=== PATIENT | female | born 1965 | race Caucasian/White ===

== ENCOUNTER 2016-12-14 16:06 | Emergency (ER) | payer OTHER ==
[~2016-12-14] VITALS: Ht 175.3 cm; Wt 76.8 kg
[~2016-12-14 16:06] MED LIST: AMLODIPINE BESYL5 MG PO; CEFEPIME HCL2 GM IM; CIPRO500 MG PO; DILAUDID4 MG PO; Glucotrol PO; JANUMET 50/11 TABLET PO; JANUMET XR 50-1 EAC1 PO; JANUVIA25 M1 PO; LANTUS 10100 UNITS/ SC; LEVEMIR100 UNIT/2 SC; Lantus 3 ml Solostar SC; NORMODYNE,TRAN200 MG PO; VANCOMYCIN1.25 GM/25 IV; WYGESIC,DARV1 TABLET PO; ZOFRAN ODT4 MG PO; Zestril,Prinivil PO
[2016-12-14 16:44] LABS: POINT-OF-CARE METER ID UU13113778
[2016-12-14 16:49] LABS: MCH 26.4 PG (29.0-34.0); MCHC 32.6 G/DL (30.0-36.0); MEAN PLAT.VOLUME 10.2 uM^3 (9.5-12.4); PLATELET COUNT 289 K/uL (156-360); RBC DIS.WIDTH-CV 14.5 % (11.8-14.6); RBC DIS.WIDTH-SD 41.8 % (39-53); RED BLOOD COUNT 4.69 M/uL (3.80-5.20); WHITE BLOOD COUNT 6.5 K/uL (4.1-10.2)
[2016-12-14 17:01] LABS: CHLORIDE 103 mEq/L (99-109); POTASSIUM 4.2 mEq/L (3.7-5.4); SODIUM 138 mEq/L (136-147)
[2016-12-14 17:03] LABS: GLUCOSE 225 mg/dL (70-99)
[2016-12-14 17:05] LABS: ANION GAP 12 MEQ/L (2-14); TOTAL BILIRUBIN 0.7 mg/dL (0.0-1.0)
[2016-12-14 17:07] LABS: ALKALINE PHOSPHATASE 83 IU/L (3-129); GFR ESTIMATE (CALCULATED) 42 mL/min/
[2016-12-14 17:08] LABS: UREA NITROGEN (BUN) 27 mg/dL (9-23)
[2016-12-14 17:16] LABS: QUANTITATIVE HCG < 4.0 MIU/ML
[2016-12-14] MEDS ORDERED: LANTUS 10100 UNITS/ SC (17:48)
[2016-12-14 19:31] LABS: ADD MIUA? YES; BILIRUBIN NEGATIVE; BLOOD MODERATE; COLOR YELLOW ((YELLOW)); GLUCOSE (STRIP) NEGATIVE; KETONES 20; LEUKOCYTES MODERATE; NITRITE NEGATIVE; PROTEIN (STRIP) 100; SPECIFIC GRAVITY 1.021 (1.000-1.030); UROBILINOGEN 0.2 MG/DL (0.2-1.0)
[2016-12-14 19:39] LABS: MUCUS NONE SEEN /LPF; RED BLOOD CELLS 0-5 /HPF (0-5); WHITE BLOOD CELLS TNTC /HPF (0-5)
[2016-12-14 19:40] LABS: BACTERIA 4+ /HPF; CASTS NONE SEEN /LPF; CRYSTALS NONE SEEN; EPITHELIAL CELLS 1+ /HPF; UCUL ADDED? YES
[2016-12-14] MEDS ORDERED: KEFLEX500 MG PO (21:36)
[2016-12-14 22:04] VITALS: BP 148/97
== END 2016-12-14 22:05 | disposition home or self-care (01) ==
LOC: EME 16:06
DX: N13.6 Pyonephrosis (principal); R10.9 Unspecified abdominal pain; R11.2 Nausea with vomiting, unspecified; R19.7 Diarrhea, unspecified; R51 Headache; E11.9 Type 2 diabetes mellitus without complications; Z79.4 Long term (current) use of insulin
CPT/HCPCS: 74176; 80053; 81003; 82948; 84702; 85027; 87077; 87086; 87186; 99281; 99285; J0696; J1885; J2270; J2405; J7050

== ENCOUNTER 2016-12-16 19:02 | Inpatient (IN) | payer OTHER ==
[~2016-12-16] VITALS: Ht 175.3 cm; Wt 78.9 kg
[~2016-12-16 19:02] MED LIST changes: +KEFLEX500 MG PO
[2016-12-16 20:30] LABS: EOSINOPHIL (%) 1.6 % (0-5); EOSINOPHIL COUNT 0.1 K/uL (0-0.3); HEMATOCRIT 35.9 % (36.0-46.0); IMMATURE GRANULOCYTE (%) 0.3 % (0.0-0.7); IMMATURE GRANULOCYTE COUNT 0.1 K/uL; LYMPHOCYTE COUNT 1.2 K/uL (1.0-2.8); MCH 26.1 PG (29.0-34.0); MCHC 31.5 G/DL (30.0-36.0); MCV 82.9 FL (83-99); MEAN PLAT.VOLUME 9.8 uM^3 (9.5-12.4); MONOCYTE (%) 17.1 % (3-12); MONOCYTE COUNT 0.7 K/uL (0-0.8); NEUTROPHIL (%) 50.4 % (45-76); PLATELET COUNT 328 K/uL (156-360); RBC DIS.WIDTH-CV 14.1 % (11.8-14.6); RBC DIS.WIDTH-SD 41.9 % (39-53); RED BLOOD COUNT 4.33 M/uL (3.80-5.20)
[2016-12-16] MEDS ORDERED: KEFLEX500 MG PO (20:31)
[2016-12-16 20:34] LABS: WHITE BLOOD COUNT 3.9 K/uL (4.1-10.2)
[2016-12-16 20:40] LABS: CHLORIDE 105 mEq/L (99-109); POTASSIUM 4.9 mEq/L (3.7-5.4); SODIUM 140 mEq/L (136-147)
[2016-12-16 20:43] LABS: ANION GAP 10 MEQ/L (2-14)
[2016-12-16 20:44] LABS: GLUCOSE 118 mg/dL (70-99)
[2016-12-16 20:45] LABS: GFR ESTIMATE (CALCULATED) 50 mL/min/
[2016-12-16 20:46] LABS: UREA NITROGEN (BUN) 24 mg/dL (9-23)
[2016-12-16 22:49] VITALS: BP 161/98
[2016-12-17 03:52] LABS: POINT-OF-CARE METER ID UU14162508
[2016-12-17 04:00] VITALS: BP 156/89
[2016-12-17 07:08] LABS: HEMATOCRIT 32.2 % (36.0-46.0); MCH 26.8 PG (29.0-34.0); MCV 83.9 FL (83-99); MEAN PLAT.VOLUME 9.9 uM^3 (9.5-12.4); PLATELET COUNT 257 K/uL (156-360); RBC DIS.WIDTH-CV 14.3 % (11.8-14.6); RBC DIS.WIDTH-SD 43.8 % (39-53); RED BLOOD COUNT 3.84 M/uL (3.80-5.20); WHITE BLOOD COUNT 3.2 K/uL (4.1-10.2)
[2016-12-17 07:32] LABS: ANION GAP 9 MEQ/L (2-14); CHLORIDE 105 MEQ/L (99-109); GFR ESTIMATE (CALCULATED) > 59 mL/min/; SAMPLE HEMOLYSIS CHECK 0; SAMPLE ICTERIC CHECK 0; SAMPLE LIPEMIA CHECK 0; SODIUM 138 MEQ/L (136-147); UREA NITROGEN (BUN) 17 mg/dL (9-23)
[2016-12-17 07:33] LABS: IRON 22 MCG/DL (35-150)
[2016-12-17 07:36] LABS: EOSINOPHIL (%) 1.9 % (0-5); EOSINOPHIL COUNT 0.1 K/uL (0-0.3); IMMATURE GRANULOCYTE (%) 0.6 % (0.0-0.7); MONOCYTE (%) 16.4 % (3-12); MONOCYTE COUNT 0.5 K/uL (0-0.8); NEUTROPHIL (%) 48.9 % (45-76); NEUTROPHIL COUNT 1.6 K/uL (1.8-6.4)
[2016-12-17 07:39] LABS: GLUCOSE 88 mg/dL (70-99)
[2016-12-17 08:08] VITALS: BP 162/98
[2016-12-17 08:11] LABS: FERRITIN 161 NG/ML (10-291)
[2016-12-17 11:35] LABS: POINT-OF-CARE METER ID UU14162508
[2016-12-17 12:08] VITALS: BP 164/100
[2016-12-17 16:07] LABS: POINT-OF-CARE METER ID UU14162508
[2016-12-17 16:11] VITALS: BP 166/100
[2016-12-17 21:40] LABS: POINT-OF-CARE METER ID UU14162508
[2016-12-18 00:12] VITALS: BP 131/72
[2016-12-18 03:20] LABS: POINT-OF-CARE METER ID UU14162508
[2016-12-18 07:48] LABS: HEMATOCRIT 33.7 % (36.0-46.0); MCH 25.3 PG (29.0-34.0); MCHC 30.6 G/DL (30.0-36.0); MCV 82.8 FL (83-99); RBC DIS.WIDTH-CV 14.1 % (11.8-14.6); RBC DIS.WIDTH-SD 42.7 % (39-53); RED BLOOD COUNT 4.07 M/uL (3.80-5.20)
[2016-12-18 07:51] LABS: WHITE BLOOD COUNT 5.4 K/uL (4.1-10.2)
[2016-12-18 07:57] LABS: ANION GAP 12 MEQ/L (2-14); CHLORIDE 103 MEQ/L (99-109); GFR ESTIMATE (CALCULATED) > 59 mL/min/; GLUCOSE 149 mg/dL (70-99); MAGNESIUM 1.4 mg/dl (1.3-2.7); POTASSIUM 4.1 MEQ/L (3.7-5.4); SAMPLE HEMOLYSIS CHECK 0; SAMPLE ICTERIC CHECK 0; SAMPLE LIPEMIA CHECK 0; SODIUM 139 MEQ/L (136-147); UREA NITROGEN (BUN) 15 mg/dL (9-23)
[2016-12-18 08:12] VITALS: BP 157/92
[2016-12-18 08:32] LABS: MEAN PLAT.VOLUME 9.7 uM^3 (9.5-12.4); PLATELET COUNT 279 K/uL (156-360)
[2016-12-18 11:22] VITALS: BP 175/91
[2016-12-18 11:37] LABS: POINT-OF-CARE METER ID UU14162508
[2016-12-18 15:36] VITALS: BP 158/84
[2016-12-18 21:18] VITALS: BP 163/89
[2016-12-18 23:41] VITALS: BP 140/85
[2016-12-19 03:56] VITALS: BP 155/85
[2016-12-19 07:05] VITALS: BP 150/87
[2016-12-19 07:29] LABS: ANION GAP 12 MEQ/L (2-14); CHLORIDE 101 MEQ/L (99-109); EOSINOPHIL (%) 0.4 % (0-5); GFR ESTIMATE (CALCULATED) 55 mL/min/; HEMATOCRIT 32.6 % (36.0-46.0); IMMATURE GRANULOCYTE COUNT 0.2 K/uL; MCH 27.2 PG (29.0-34.0); MCHC 33.1 G/DL (30.0-36.0); MCV 82.1 FL (83-99); MEAN PLAT.VOLUME 9.6 uM^3 (9.5-12.4); MONOCYTE (%) 14.5 % (3-12); MONOCYTE COUNT 1.1 K/uL (0-0.8); NEUTROPHIL (%) 70.2 % (45-76); NEUTROPHIL COUNT 5.4 K/uL (1.8-6.4); PLATELET COUNT 327 K/uL (156-360); RBC DIS.WIDTH-CV 14.2 % (11.8-14.6); RBC DIS.WIDTH-SD 42.6 % (39-53); RED BLOOD COUNT 3.97 M/uL (3.80-5.20); SAMPLE HEMOLYSIS CHECK 0; SAMPLE ICTERIC CHECK 0; SAMPLE LIPEMIA CHECK 0; SODIUM 137 MEQ/L (136-147); UREA NITROGEN (BUN) 13 mg/dL (9-23)
[2016-12-19 07:32] LABS: GLUCOSE 108 mg/dL (70-99)
[2016-12-19 07:34] LABS: WHITE BLOOD COUNT 7.7 K/uL (4.1-10.2)
[2016-12-19 12:08] VITALS: BP 134/76
[2016-12-19 16:03] VITALS: BP 156/80
[2016-12-19 17:08] LABS: POINT-OF-CARE METER ID UU14162508
[2016-12-19 23:48] VITALS: BP 156/84
[2016-12-20 08:12] VITALS: BP 154/80
[2016-12-20 11:30] VITALS: BP 147/80
[2016-12-20 12:29] LABS: EOSINOPHIL (%) 0.2 % (0-5); HEMATOCRIT 35.4 % (36.0-46.0); IMMATURE GRANULOCYTE (%) 1.7 % (0.0-0.7); IMMATURE GRANULOCYTE COUNT 0.2 K/uL; MCH 26.3 PG (29.0-34.0); MCHC 31.6 G/DL (30.0-36.0); MCV 83.1 FL (83-99); MEAN PLAT.VOLUME 9.5 uM^3 (9.5-12.4); MONOCYTE (%) 8.1 % (3-12); MONOCYTE COUNT 0.9 K/uL (0-0.8); NEUTROPHIL (%) 81.1 % (45-76); PLATELET COUNT 385 K/uL (156-360); RBC DIS.WIDTH-SD 42.4 % (39-53); RED BLOOD COUNT 4.26 M/uL (3.80-5.20)
[2016-12-20 12:32] LABS: WHITE BLOOD COUNT 11.1 K/uL (4.1-10.2)
[2016-12-20 12:51] LABS: ANION GAP 10 MEQ/L (2-14); CHLORIDE 99 MEQ/L (99-109); GFR ESTIMATE (CALCULATED) 50 mL/min/; GLUCOSE 134 mg/dL (70-99); POTASSIUM 3.7 MEQ/L (3.7-5.4); SAMPLE HEMOLYSIS CHECK 0; SAMPLE ICTERIC CHECK 0; SAMPLE LIPEMIA CHECK 0; SODIUM 137 MEQ/L (136-147); UREA NITROGEN (BUN) 10 mg/dL (9-23)
[2016-12-20 15:23] VITALS: BP 143/81
[2016-12-20 19:01] LABS: ADD MIUA? YES; BILIRUBIN NEGATIVE; BLOOD MODERATE; COLOR YELLOW ((YELLOW)); GLUCOSE (STRIP) NEGATIVE; KETONES NEGATIVE; LEUKOCYTES SMALL; NITRITE NEGATIVE; PROTEIN (STRIP) 100; SPECIFIC GRAVITY 1.013 (1.000-1.030); UROBILINOGEN 0.2 MG/DL (0.2-1.0)
[2016-12-20 19:29] LABS: BACTERIA RARE /HPF; EPITHELIAL CELLS 3+ /HPF; MUCUS TRACE /LPF; WHITE BLOOD CELLS 20-30 /HPF (0-5)
[2016-12-20 23:19] VITALS: BP 140/74
[2016-12-21 06:57] LABS: EOSINOPHIL (%) 0.3 % (0-5); HEMATOCRIT 34.2 % (36.0-46.0); MCHC 31.3 G/DL (30.0-36.0); MCV 83.2 FL (83-99); MEAN PLAT.VOLUME 9.7 uM^3 (9.5-12.4); MONOCYTE (%) 8.1 % (3-12); NEUTROPHIL (%) 82.4 % (45-76); PLATELET COUNT 363 K/uL (156-360); RBC DIS.WIDTH-CV 14.1 % (11.8-14.6); RBC DIS.WIDTH-SD 42.6 % (39-53); RED BLOOD COUNT 4.11 M/uL (3.80-5.20); WHITE BLOOD COUNT 12.6 K/uL (4.1-10.2)
[2016-12-21 06:58] LABS: IMMATURE GRANULOCYTE (%) 1.1 % (0.0-0.7); IMMATURE GRANULOCYTE COUNT 0.1 K/uL; INSTRUMENT ABS NEUTROPHIL CT 10.4 K/uL; NEUTROPHIL COUNT 10.4 K/uL (1.8-6.4)
[2016-12-21 08:00] VITALS: BP 152/91
[2016-12-21 12:00] LABS: POINT-OF-CARE METER ID UU14162508
[2016-12-21 15:47] VITALS: BP 130/73
[2016-12-21 17:23] LABS: POINT-OF-CARE METER ID UU14162508
[2016-12-21 22:15] LABS: POINT-OF-CARE METER ID UU14162508
[2016-12-21 23:37] VITALS: BP 124/67
[2016-12-22 06:35] LABS: POINT-OF-CARE METER ID UU14162508
[2016-12-22 07:55] LABS: POINT-OF-CARE METER ID UU14162508
[2016-12-22 08:54] VITALS: BP 137/80
[2016-12-22 10:46] LABS: HEMATOCRIT 31.4 % (36.0-46.0); MCH 25.9 PG (29.0-34.0); MCHC 31.2 G/DL (30.0-36.0); MCV 83.1 FL (83-99); MEAN PLAT.VOLUME 9.5 uM^3 (9.5-12.4); PLATELET COUNT 404 K/uL (156-360); RBC DIS.WIDTH-CV 14.2 % (11.8-14.6); RED BLOOD COUNT 3.78 M/uL (3.80-5.20); WHITE BLOOD COUNT 16.3 K/uL (4.1-10.2)
[2016-12-22 11:00] VITALS: BP 134/73
[2016-12-22 11:02] LABS: ANION GAP 12 MEQ/L (2-14); CHLORIDE 97 MEQ/L (99-109); MAGNESIUM 1.4 mg/dl (1.3-2.7); SAMPLE HEMOLYSIS CHECK 0; SAMPLE ICTERIC CHECK 0; SAMPLE LIPEMIA CHECK 0; SODIUM 136 MEQ/L (136-147)
[2016-12-22 11:09] LABS: GFR ESTIMATE (CALCULATED) 50 mL/min/; UREA NITROGEN (BUN) 14 mg/dL (9-23)
[2016-12-22 11:10] LABS: GLUCOSE 86 mg/dL (70-99)
[2016-12-22 14:56] LABS: IMM.RETIC FRACTION 9.1 % (3-19); RETIC HGB EQUIVALENT 23.1 (28-36)
[2016-12-22 15:41] LABS: IRON 12 MCG/DL (35-150)
[2016-12-22 16:20] LABS: FERRITIN 305 NG/ML (10-291)
[2016-12-22 16:23] LABS: POINT-OF-CARE METER ID UU14162508
[2016-12-22 16:33] VITALS: BP 133/77
[2016-12-22] MEDS ORDERED: INVANZ1 GM IV (18:18)
[2016-12-22] MEDS ORDERED: FAMOTIDINE20 MG PO (18:19)
[2016-12-22] MEDS ORDERED: METFORMIN HCL1000 MG PO (18:19)
[2016-12-22] MEDS ORDERED: AMLODIPINE BESYL5 MG PO (18:19)
[2016-12-22] MEDS ORDERED: METOCLOPRAM5 MG/1 M1 IV (18:19)
[2016-12-22] MEDS ORDERED: HEPARIN SO5000 UNITS SC (18:19)
[2016-12-22 22:15] LABS: POINT-OF-CARE METER ID UU14162508
[2016-12-22 23:50] VITALS: BP 158/87
[2016-12-23 07:38] LABS: HEMATOCRIT 31.7 % (36.0-46.0); MCH 25.9 PG (29.0-34.0); MCHC 31.2 G/DL (30.0-36.0); MEAN PLAT.VOLUME 9.2 uM^3 (9.5-12.4); PLATELET COUNT 385 K/uL (156-360); RBC DIS.WIDTH-CV 14.6 % (11.8-14.6); RBC DIS.WIDTH-SD 43.9 % (39-53); RED BLOOD COUNT 3.82 M/uL (3.80-5.20); WHITE BLOOD COUNT 13.6 K/uL (4.1-10.2)
[2016-12-23 07:50] VITALS: BP 137/77
[2016-12-23 12:36] VITALS: BP 128/68
[2016-12-23 16:10] VITALS: BP 144/79
[2016-12-23 16:42] LABS: POINT-OF-CARE METER ID UU14162508
[2016-12-23 19:57] VITALS: BP 152/81
[2016-12-23 23:23] VITALS: BP 113/69
[2016-12-24 03:45] LABS: POINT-OF-CARE METER ID UU14162508
[2016-12-24 08:00] VITALS: BP 117/56
[2016-12-24 12:26] LABS: POINT-OF-CARE METER ID UU14162508
[2016-12-24 14:23] LABS: HEMATOCRIT 30.6 % (36.0-46.0); MCH 25.4 PG (29.0-34.0); MCHC 30.4 G/DL (30.0-36.0); MCV 83.6 FL (83-99); MEAN PLAT.VOLUME 9.4 uM^3 (9.5-12.4); PLATELET COUNT 447 K/uL (156-360); RBC DIS.WIDTH-CV 14.6 % (11.8-14.6); RBC DIS.WIDTH-SD 44.6 % (39-53); RED BLOOD COUNT 3.66 M/uL (3.80-5.20); WHITE BLOOD COUNT 14.8 K/uL (4.1-10.2)
[2016-12-24 14:51] LABS: ALKALINE PHOSPHATASE 104 IU/L (3-129); ANION GAP 11 MEQ/L (2-14); CHLORIDE 101 MEQ/L (99-109); GFR ESTIMATE (CALCULATED) > 59 mL/min/; MAGNESIUM 1.5 mg/dl (1.3-2.7); POTASSIUM 3.9 MEQ/L (3.7-5.4); SAMPLE HEMOLYSIS CHECK 0; SAMPLE ICTERIC CHECK 0; SAMPLE LIPEMIA CHECK 0; SODIUM 137 MEQ/L (136-147); TOTAL BILIRUBIN 0.3 MG/DL (0.0-1.0); UREA NITROGEN (BUN) 17 mg/dL (9-23)
[2016-12-24 14:58] LABS: GLUCOSE 112 mg/dL (70-99)
[2016-12-24 16:00] VITALS: BP 119/71
[2016-12-24 16:39] LABS: POINT-OF-CARE METER ID UU14162508
[2016-12-24 23:40] VITALS: BP 114/58
[2016-12-25 05:22] LABS: EOSINOPHIL (%) 0.2 % (0-5); HEMATOCRIT 29.7 % (36.0-46.0); IMMATURE GRANULOCYTE (%) 0.7 % (0.0-0.7); IMMATURE GRANULOCYTE COUNT 0.1 K/uL; INSTRUMENT ABS NEUTROPHIL CT 10.5 K/uL; LYMPHOCYTE COUNT 0.9 K/uL (1.0-2.8); MCH 25.8 PG (29.0-34.0); MCV 83.4 FL (83-99); MEAN PLAT.VOLUME 9.6 uM^3 (9.5-12.4); MONOCYTE (%) 9.4 % (3-12); MONOCYTE COUNT 1.2 K/uL (0-0.8); NEUTROPHIL (%) 82.3 % (45-76); NEUTROPHIL COUNT 10.5 K/uL (1.8-6.4); PLATELET COUNT 475 K/uL (156-360); RBC DIS.WIDTH-CV 14.6 % (11.8-14.6); RBC DIS.WIDTH-SD 44.9 % (39-53); RED BLOOD COUNT 3.56 M/uL (3.80-5.20); WHITE BLOOD COUNT 12.8 K/uL (4.1-10.2)
[2016-12-25 05:47] LABS: ANION GAP 12 MEQ/L (2-14); CHLORIDE 99 MEQ/L (99-109); GFR ESTIMATE (CALCULATED) 50 mL/min/; GLUCOSE 94 mg/dL (70-99); POTASSIUM 3.6 MEQ/L (3.7-5.4); SAMPLE HEMOLYSIS CHECK 0; SAMPLE ICTERIC CHECK 0; SAMPLE LIPEMIA CHECK 0; SODIUM 136 MEQ/L (136-147); UREA NITROGEN (BUN) 17 mg/dL (9-23)
[2016-12-25 08:25] VITALS: BP 120/73
[2016-12-25] MEDS ORDERED: JANUVIA25 M1 PO (11:09)
[2016-12-25] MEDS ORDERED: AMLODIPINE BESYL5 MG PO (11:34)
== END 2016-12-25 11:54 | disposition home or self-care (01) | DRG 690 ==
LOC: EME 19:02 → EDOF 21:04 → 2EAST 21:04
PROVIDERS: Emergency Medicine; Hospitalist; Internal Medicine; Internal Medicine Infectious Disease
DX: N13.6 Pyonephrosis (principal); N17.9 Acute kidney failure, unspecified; B96.20 Unspecified Escherichia coli [E. coli] as the cause of diseases classified elsewhere; E11.621 Type 2 diabetes mellitus with foot ulcer; L97.419 Non-pressure chronic ulcer of right heel and midfoot with unspecified severity; E87.6 Hypokalemia; R50.2 Drug induced fever; E03.9 Hypothyroidism, unspecified; E11.22 Type 2 diabetes mellitus with diabetic chronic kidney disease; N18.3 Chronic kidney disease, stage 3 (moderate); D50.9 Iron deficiency anemia, unspecified; Z88.0 Allergy status to penicillin; Z88.7 Allergy status to serum and vaccine; Z79.4 Long term (current) use of insulin; Z89.422 Acquired absence of other left toe(s); Z91.040 Latex allergy status
CPT/HCPCS: 74020; 74176; 76770; 80048; 80053; 80202; 81003; 82607; 82728; 82746; 82948; 83540; 83605; 83735; 84443; 84466; 84702; 85025; 85027; 85045; 87040; 87077; 87086; 87186; 94799; 99281; 99285; J0692; J0696; J1335; J1644; J1815; J1885; J2270; J2405; J2765; J3360; J3370; J3475; J7030; J7042; J7050; S0028